=== PATIENT | female | born 1965 | race Hispanic/Latino ===

== ENCOUNTER 2017-08-15 12:49 | Outpatient (CLI) | payer OTHER | END 2017-08-15 12:50 | disposition home or self-care (01) | LOC: BICRAD 12:49 | PROVIDERS: ATTEND Family Medicine | DX: R06.2 Wheezing (principal) | CPT/HCPCS: 71046 ==

== ENCOUNTER 2018-05-30 08:28 | Outpatient (CLI) | payer OTHER ==
--- NOTE | 2018-05-30 13:52 | NM ---
NUCLEAR MEDICINE CARDIAC STRESS TEST WITH EJECTION FRACTION: HISTORY: Chest pain. Stent. CABG. Coronary artery disease. History of KS and CAD. COMPARISON: None. TECHNIQUE: Stress and rest performed after the intravenous administration of 29.8 and 10.6 millicuries technetiu m 99m sestamibi. FINDINGS: There is a large scar of the lateral wall of the left ventricle. There is slightly decreased wall mo tion of the lateral wall. There is no evidence of ischemia. Ejection fraction is 61%. IMPRESSION: 1. Large scar, lateral wall, left ventricle, with slightly decreased motion. 2. Normal ejection fraction at 61%. 3. No evidence of acute infarction. POS: [facility]
== END 2018-05-30 08:29 | disposition home or self-care (01) ==
LOC: NM 08:28
DX: I25.5 Ischemic cardiomyopathy (principal); I25.10 Atherosclerotic heart disease of native coronary artery without angina pectoris; I34.0 Nonrheumatic mitral (valve) insufficiency; Z95.1 Presence of aortocoronary bypass graft; I51.89 Other ill-defined heart diseases
CPT/HCPCS: 78452; 93017; A9500

== ENCOUNTER 2019-02-05 12:22 | Outpatient (CLI) | payer OTHER ==
--- NOTE | 2019-02-05 13:15 | ULT ---
Bilateral renal ultrasound CLINICAL INDICATION: Chronic kidney disease for 2 years. COMPARISON: None FINDINGS: Right kidney: There is mild nonspecific prominence of the renal pelvis without overt hydronephrosis. No renal mass or renal calculus is seen involving the right kidney.The right kidney measures 9.3 cm x 5.1 cm. Left kidney: There is no evidence of a renal mass, renal calculus, or hydronephrosis. The left kidney measures 10.5 cm x 6.4 cm. Urinary bladder: Normal in appearance with a prevoid urinary bladder volume of 171 mL and postvoid ur inary bladder volume of 1.7 mL. IMPRESSION: 1. Normal appearing bilateral kidneys without evidence of hydronephrosis. 2. No post void residual.
== END 2019-02-05 12:23 | disposition home or self-care (01) ==
LOC: BICULT 12:22
PROVIDERS: ATTEND Internal Medicine Nephrology
DX: N17.9 Acute kidney failure, unspecified (principal); N18.9 Chronic kidney disease, unspecified; I25.10 Atherosclerotic heart disease of native coronary artery without angina pectoris
CPT/HCPCS: 76770

== ENCOUNTER 2020-06-05 12:11 | Outpatient (CLI) | payer OTHER | END 2020-06-05 12:12 | disposition home or self-care (01) | LOC: BICRAD 12:11 | PROVIDERS: ATTEND Internal Medicine Medical Oncology | DX: C90.00 Multiple myeloma not having achieved remission (principal) | CPT/HCPCS: 77075 ==

== ENCOUNTER 2020-09-24 13:53 | Outpatient (CLI) | payer OTHER | END 2020-09-24 13:54 | disposition home or self-care (01) | LOC: BICMRI 13:53 | PROVIDERS: ATTEND Family Medicine | DX: M54.17 Radiculopathy, lumbosacral region (principal) | CPT/HCPCS: 72148 ==

== ENCOUNTER 2020-12-02 13:54 | Outpatient (CLI) | payer OTHER | END 2020-12-02 13:55 | disposition home or self-care (01) | LOC: BICRAD 13:54 | DX: M13.0 Polyarthritis, unspecified (principal); M47.814 Spondylosis without myelopathy or radiculopathy, thoracic region; M41.9 Scoliosis, unspecified; M47.812 Spondylosis without myelopathy or radiculopathy, cervical region; M47.816 Spondylosis without myelopathy or radiculopathy, lumbar region | CPT/HCPCS: 72040; 72072; 72100 ==

== ENCOUNTER 2024-03-30 15:21 | Outpatient (CLI) | payer OTHER | END 2024-03-30 15:22 | disposition home or self-care (01) | LOC: SCSRAD 15:21 | PROVIDERS: ATTEND Internal Medicine | DX: D47.2 Monoclonal gammopathy (principal) | CPT/HCPCS: 77075 ==

== ENCOUNTER 2024-04-23 11:32 | Outpatient (CLI) | payer OTHER ==
[~2024-04-23 11:32] MED LIST: Iopamidol 370 76% 100 ML VIAL ONE
== END 2024-04-23 11:33 | disposition home or self-care (01) ==
LOC: CT 11:32
PROVIDERS: ATTEND Internal Medicine
DX: D47.2 Monoclonal gammopathy (principal); R10.84 Generalized abdominal pain; K83.8 Other specified diseases of biliary tract
CPT/HCPCS: 74177

== ENCOUNTER 2024-05-07 07:36 | Outpatient (CLI) | payer OTHER ==
[2024-05-07] MEDS ORDERED: Magnevist 469MG/ML 20 ML VIAL ONE (10:59)
== END 2024-05-07 07:37 | disposition home or self-care (01) ==
LOC: MRI 07:36
PROVIDERS: ATTEND Internal Medicine
DX: K83.1 Obstruction of bile duct (principal); D47.2 Monoclonal gammopathy; R10.84 Generalized abdominal pain; K82.8 Other specified diseases of gallbladder; K76.89 Other specified diseases of liver
CPT/HCPCS: 74183; 76376